=== PATIENT | female | born 1985 | race Hispanic/Latino ===

== ENCOUNTER 2018-03-16 11:18 | Emergency (ER) | payer SELFPAY ==
[~2018-03-16] VITALS: Ht 172.7 cm; Wt 76.2 kg
--- NOTE | 2018-03-16 13:46 | Diagnostic Imaging Report ---
Examination: Single AP view of the chest. COMPARISON: None. INDICATION: Chest pain DISCUSSION: Lines/tubes: None. Lungs: The lungs are well inflated and clear. There is no evidence of pneumonia or pulmonary edema. Pleura: There is no pleural effusion or pneumothorax. Heart and mediastinum: The heart and the mediastinum are unremarkable. Bones and soft tissues: No acute bony abnormalities. Degenerative changes in the thoracic spine. IMPRESSION: 1. No acute cardiopulmonary abnormalities. Signed by: Dr. Lei Rey M.D. on 03/16/2018 1:43 PM
== END 2018-03-16 15:25 | disposition home or self-care (01) ==
LOC: ER 11:18
DX: R07.89 Other chest pain (principal); F31.9 Bipolar disorder, unspecified; Z88.0 Allergy status to penicillin
CPT/HCPCS: 71045; 93005; 99282

== ENCOUNTER 2018-06-29 20:36 | Emergency (ER) | payer SELFPAY ==
[~2018-06-29] VITALS: Ht 172.7 cm; Wt 76.2 kg
--- OUTSIDE RECORDS SUMMARY | 2018-06-29 20:38 | XMS REPORT ---
Author Author 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 Allergies, Adverse Reactions, Alerts This patient has no known allergies or adverse reactions. Medications This patient has no known medications. Encounters Start Date/Time End Date/Time Encounter Type Admission Type Attending [facility] Care Facility Care Department Encounter ID 2017-05-05 08:10:50 2017-05-05 08:10:50 Outpatient [facility] [id number] 2017-01-13 14:00:47 2017-01-13 14:00:47 Outpatient [facility] [id number] Results Test Description Test Time Test Comments Text Results Atomic Results Result Comments CHEST SINGLE (NOT PORTABLE) 2018-03-16 13:42:00 [place] [id number] Patient Name: KG THOMAS MR #: [id number] : 1985 Age/Sex: 32/F Req #: [id number] Adm Physician: Ordered by: LANNY ROYAL WEDGER MACHINE Report #: [id number] Location: ER Room/Bed: Procedure: [id number] DX/CHEST SINGLE (NOT PORTABLE) Exam Date: 03/16/18 Exam Time: 1320 REPORT STATUS: Signed Examination: Single AP view of the chest. COMPARISON: None. INDICATION: Chest pain DISCUSSION: Lines/tubes: None. Lungs: The lungs are well inflated and clear. There is no evidence of pneumonia or pulmonary edema. Pleura: There is no pleural effusion or pneumothorax. Heart and mediastinum: The heart and the mediastinum are unremarkable. Bones and soft tissues: No acute bony abnormalities. Degenerative changes in the thoracic spine. IMPRESSION: 1. No acute cardiopulmonary abnormalities. Signed by: Dr. Juan Luis Blanca M.D. on 03/16/2018 1:43 PM Dictated By: JUAN LUIS BLANCA MD [id number] Transcribed By: SRINIVASA on 03/16/18 1343 COPY TO: LANNY ROYAL NP
[2018-06-29 21:48] LABS: BASOPHILS # (AUTO) 0.1 (0.0-0.1); BASOPHILS % 0.8 % (0.0-1.0); EOSINOPHILS # (AUTO) 0.1 (0.0-0.4); EOSINOPHILS % 1.5 % (0.0-6.0); HEMATOCRIT 39.3 % (34.2-44.1); HEMOGLOBIN 13.2 g/dL (12.0-16.0); LYMPHOCYTES # (AUTO) 2.7 (1.0-3.2); LYMPHOCYTES % 31.4 % (18.0-39.1); MEAN CORPUSCULAR HEMOGLOBIN 30.9 pg (28-32); MEAN CORPUSCULAR HGB CONC 33.6 g/dL (31-35); MONOCYTES # (AUTO) 0.4 (0.2-0.8); MONOCYTES % 4.7 % (4.4-11.3); NEUTROPHILS # (AUTO) 5.2 (2.1-6.9); NEUTROPHILS % 61.2 % (38.7-80.0); PLATELET COUNT 314 x10e3/uL (140-360); RED BLOOD COUNT 4.27 x10e6/uL (3.6-5.1)
--- NOTE | 2018-06-29 22:01 | Diagnostic Imaging Report ---
EXAMINATION: PA and lateral views of the chest. COMPARISON: Portable chest 03/16/2018 CLINICAL HISTORY: Chest pain and headache DISCUSSION: Lines/tubes: None. Lungs: The lungs are well inflated and grossly clear. There is no evidence of pneumonia or pulmonary edema. Pleura: There is no pleural effusion or pneumothorax. Heart and mediastinum: Cardiomediastinal silhouette is unremarkable. Pulmonary vasculature is normal. Bones and soft tissues: No acute bony abnormalities. IMPRESSION: No acute cardiopulmonary abnormalities. Signed by: Dr. Satya Price M.D. on 06/29/2018 9:58 PM
[2018-06-29 22:17] LABS: ALBUMIN 4.6 g/dL (3.5-5.0); ALBUMIN/GLOBULIN RATIO 1.2 (0.8-2.0); ANION GAP 15.1 mmol/L (8-16); CREATININE, SERUM 1.14 mg/dL (0.57-1.11); POTASSIUM 4.1 mmol/L (3.5-5.1)
[2018-06-29 22:24] LABS: CREATINE KINASE MB 1.1 ng/mL (0-5.0)
[2018-06-29] MEDS ORDERED: SODIUM CHLORIDE 0.9% 1000ML 1,000 ML IV STA (22:56)
[2018-06-29] MEDS ORDERED: IOPAMIDOL 370 MG/ML 200 ML INFUS..BTL INJ ONE (23:27)
[2018-06-29] MEDS ORDERED: SODIUM CHLORIDE 0.9% 50ML 50 ML ONE (23:27)
--- NOTE | 2018-06-30 00:21 | Diagnostic Imaging Report ---
EXAMINATION: CT of the chest with contrast, PE protocol. TECHNIQUE: Spiral CT images of the chest were performed from the lung apices through the level of the adrenal glands after the IV administration of 100 cc of Isovue 370. Thin section reconstructions were obtained with special concentration on the pulmonary arteries. Coronal and sagittal reformatted images were also performed. COMPARISON: Chest 2 views 06/29/2018 CLINICAL HISTORY:Chest pain when breathing, headache DISCUSSION: Lungs: No filling defects are identified in the main, right or left pulmonary arteries to their segmental levels, to suggest pulmonary embolism. Lungs are clear. No nodules, masses, opacities or consolidation. Airways: <The major airways are clear, without endobronchial lesions.> Pleura: <There is no evidence of pleural effusion or pneumothorax.> Heart and mediastinum: Thyroid is unremarkable. Heart size is normal. No pericardial effusion. Aorta is nonaneurysmal. Main pulmonary artery is in the upper limit of normal, measuring 2.9 cm. Lymph nodes: No mediastinal, hilar or axillary adenopathy. Abdomen: Limited, contrast enhanced views of the upper abdomen show no abnormalities in the visualized portions of the liver, gallbladder, spleen, pancreas, adrenal glands and kidneys. Bones and soft tissues: No aggressive lytic lesions. Bilateral breast implants are identified. No soft tissue abnormalities. IMPRESSION: 1. No CT evidence of pulmonary embolism. 2. Essentially clear lungs. Signed by: Dr. Satya Price M.D. on 06/30/2018 12:18 AM
== END 2018-06-30 01:43 | disposition home or self-care (01) ==
LOC: ER 20:36
DX: R06.09 Other forms of dyspnea (principal)
CPT/HCPCS: 36415; 71046; 71260; 80053; 82550; 82553; 84484; 84702; 85025; 85379; 93005; 99284; J7030; Q9967

== ENCOUNTER 2023-10-10 09:48 | Emergency (ER) | payer SELFPAY ==
[~2023-10-10] VITALS: Ht 170.2 cm; Wt 67.1 kg
[2023-10-10 10:05] VITALS: TEMP 98.3
[2023-10-10] MEDS: PREDNISONE 20 MG TAB PO ONE (10:46)
[2023-10-10 11:07] VITALS: PULSE 83; RESP 19
[2023-10-10 11:11] VITALS: PULSE 86; RESP 18; O2SAT 96
[2023-10-10 11:12] VITALS: PULSE 86; RESP 18; O2SAT 96
[2023-10-10] MEDS: ALBUTEROL/IPRATROPIUM 3 ML NEB NEB ONE (11:12)
[2023-10-10] MEDS: IBUPROFEN 600 MG TAB PO ONE (11:20)
[2023-10-10] MEDS ORDERED: VENTOLIN HFA18 GM INH (11:39)
[2023-10-10] MEDS ORDERED: PREDNISONE20 MG PO (11:39)
[2023-10-10] MEDS ORDERED: AZITHROMYCIN250 MG PO (11:39)
== END 2023-10-10 11:54 | disposition home or self-care (01) ==
LOC: ER 09:54
DX: R05.9 Cough, unspecified (principal); J40 Bronchitis, not specified as acute or chronic; M54.9 Dorsalgia, unspecified; G89.29 Other chronic pain; F31.9 Bipolar disorder, unspecified
CPT/HCPCS: 71045; 94799; 99284; J7512